=== PATIENT | female | born 1985 | race African-American/Black ===

== ENCOUNTER 2018-07-23 10:57 | Emergency (ER) | payer SELFPAY ==
[~2018-07-23] VITALS: Ht 162.6 cm; Wt 97.5 kg
[2018-07-23 11:04] VITALS: BP 138/76
--- NOTE | 2018-07-23 11:08 | NUR ---
PT AMBULATES TO BED 2
--- NOTE | 2018-07-23 11:10 | NUR ---
32Y/F BIB SELF WITH C/O PAINFUL COUGH WITH CHEST DISCOMFORT AND GREEN PHLEGM X 3 DAYS. REPORTS NIGHTS SWEATS AND CHILLS. REPORTS NAUSEA; DENIES VOMITING DIARRHEA. PAIN IS 2/10 WITH COUGH, INTERMITTENT. PT IS AAOX4, VSS AT THIS TIME, BED DOWN, BEDRAIL UP X 1, ER MD AWARE AND NOTIFIED OF PT STATUS. HX: NEUROLGIA RX: TRILEPTOL, NEURONTIN, MOTRIN
[2018-07-23] MEDS ORDERED: ALBUTEROL SULFATE/IPRATROPIU 3 ML SOL IH ONE (11:25)
--- NOTE | 2018-07-23 11:30 | NUR ---
SWAB AND URINE COLLECTED, GIVEN TO [facility] PRESS[facility]
--- NOTE | 2018-07-23 11:43 | NUR ---
RT AT BEDSIDE
[2018-07-23] MEDS ORDERED: DEXAMETHASONE 10 MG/ML VIAL IM ONE (11:50)
[2018-07-23] MEDS ORDERED: cefTRIAXone 1,000 MG in LIDOCAINE 1% ***ER ONLY *** 2.1 ML IM ONE (11:50)
[2018-07-23] MEDS ORDERED: cefTRIAXone 1,000 MG VIAL ONE (12:05)
[2018-07-23] MEDS ORDERED: LIDOCAINE MPF 1% 5mL VIAL ONE (12:07)
[2018-07-23 12:55] VITALS: BP 135/73
--- NOTE | 2018-07-23 12:55 | NUR ---
Patient discharged with v/s stable. Written and verbal after care instructions given and explained. Patient alert, oriented and verbalized understanding of instructions. Ambulatory with steady gait. All questions addressed prior to discharge. ID band removed. Patient advised to follow up with PMD. Rx of AZITHROMYCIN, PREDNISONE, PROMETHAZINE DM given. Patient educated on indication of medication including possible reaction and side effects. Opportunity to ask questions provided and answered.
== END 2018-07-23 12:55 | disposition home or self-care (01) ==
LOC: MED 10:57
DX: J40 Bronchitis, not specified as acute or chronic (principal)
CPT/HCPCS: 71045; 81025; 87804; 94640; 96372; 99284; J0696; J1100; J2001; J7620; Q0092; 36415

== ENCOUNTER 2018-08-17 21:26 | Emergency (ER) | payer SELFPAY ==
--- NOTE | 2018-08-17 21:37 | NUR ---
NO ANSWER @ 2136, 2144, AND 2149. PATIENT LEFT WITHOUT BEING SEEN BY DR. VASQUEZ. NO FURTHER CARE PROVIDED FOR PATIENT.
== END 2018-08-17 21:37 | disposition left against medical advice (07) ==
LOC: MED 21:26
DX: Z53.21 Procedure and treatment not carried out due to patient leaving prior to being seen by health care provider (principal)
CPT/HCPCS: 93005; 99281